=== PATIENT | male | born 1965 | race Caucasian/White ===

== ENCOUNTER 2019-10-06 12:12 | Outpatient (CLI) | payer OTHER, SELFPAY ==
--- NOTE | 2019-10-06 | XR_ITS ---
WS: [id number] CHEST 2 VIEWS HISTORY: PRODUCTIVE COUGH/WHEEZING COMPARISON: 06/30/2019 Lungs: Mild progression of interstitial infiltrates opacifications in the lower lung field, LEFT grea ter than RIGHT. Some of these opacifications were present on prior studies. Superimposed on a backgro und of emphysema. Cardiac size: Normal. Mediastinum/Aorta: Mild atherosclerosis aorta. Bones: Normal. XR/XR chest 2V* [id number] IMPRESSION: New opacifications in the lower lung olivo bilaterally. Superimposed on a back ground of emphysema. Recommend follow-up to resolution. If these opacifications do not resolve chest CT should be performed to exclude malignancy.
--- NOTE | 2019-10-19 14:30 | DCPLANNER ---
Appointment was rescheduled for Saturday, November 16, 2019 at 8:00 with Paola Nagy.
== END 2019-10-06 12:13 | disposition home or self-care (01) ==
LOC: RADOUTREAD 13:19
PROVIDERS: Family Provider Family Medicine; Visit Provider Family Medicine
DX: Z76.89 Persons encountering health services in other specified circumstances (principal)

== ENCOUNTER 2020-01-04 13:46 | Outpatient (CLI) | payer OTHER, SELFPAY ==
--- NOTE | 2020-01-04 13:54 | CT_ITS ---
WS: [id number] CT CHEST HIGH-RESOLUTION, NONCONTRAST HISTORY: BRONCHIECTASIS TECHNIQUE: High-resolution CT chest. Coronal and sagittal reformats are submitted. All CT scans at [facility] use at least one of these dose optimization techniques: automated exposure contr ol; mA and/or kV adjustment per patient size (includes targeted exams where dose is matched to clinic al indication); or iterative reconstruction. CONTRAST: None DLP: 1420.96 mGycm COMPARISON: 08/08/2017 Lungs and central airway: Extensive cylindrical and cystic dilatation of the bronchial tree involving all lobes. Most significant bronchiectasis in the upper lung olivo bilaterally. Thick wall bronchi with a few air-fluid levels. There is very mild tree-in-bud airspace disease or interstitial reticula tions in the upper lung olivo. No suspicious nodules or pneumonia. Pleura: Normal. No pleural effusion. Heart and pericardium: Normal size heart. No pericardial effusion. Mediastinum and funmi: There are numerous mediastinal and hilar lymph nodes. These lymph nodes are bet ter identified on the prior study which IV contrast was provided. Lymph nodes measure up to 10 mm in short axis diameter. Vessels: Normal size aortic and pulmonary artery. No coronary artery calcifications. Chest wall and lower neck: No soft tissue masses. Upper abdomen: Negative. Osseous structures: No destructive process. CT/CT chest con [id number] IMPRESSION: 1. Extensive, multi lobar bronchiectasis with mild progression since 2017. Bro nchiectasis more predominant in the upper lobes. Differential includes postinfe ctious etiologies such as mycobacterium, recurrent aspiration, allergic broncho pulmonary aspergillosis and immune suppressive etiologies. 2. No pneumonia. 3. Indeterminate but stable mediastinal and hilar adenopathy.
== END 2020-01-04 13:47 | disposition home or self-care (01) ==
LOC: RADWPI 13:53
PROVIDERS: Family Provider Family Medicine; PCP Family Medicine; Visit Provider Family Medicine
DX: J47.9 Bronchiectasis, uncomplicated (principal); R59.0 Localized enlarged lymph nodes
CPT/HCPCS: 71250

== ENCOUNTER 2020-01-12 11:06 | Outpatient (CLI) | payer OTHER, SELFPAY | END 2020-01-12 11:07 | disposition home or self-care (01) | LOC: LAB 11:09 | PROVIDERS: PCP Family Medicine; Visit Provider Internal Medicine Critical Care Medicine | DX: J47.9 Bronchiectasis, uncomplicated (principal) | CPT/HCPCS: 87070; 87077; 87186; 87205 ==

== ENCOUNTER 2020-01-21 11:20 | Outpatient (CLI) | payer OTHER, SELFPAY ==
--- NOTE | 2020-01-21 13:22 | PFTS_ITS ---
Date of Study:01/21/20 Date of Dictation: MECHANICS: Forced vital capacity (FVC) is normal. Forced expiratory volume in one second (FEV1) is normal. FEV1/FVC is normal. FLOW VOLUME LOOP: There is no peak expiratory flow likely secondary to effort. LUNG VOLUMES: Total lung capacity (TLC) is normal. Residual volume (RV) is normal. DIFFUSING CAPACITY FOR CARBON MONOXIDE: Normal. INTERPRETATION: The pulmonary function tests are normal. Lung volumes are normal. Gas exchange (DLCO) is normal. MTDD
== END 2020-01-21 11:21 | disposition home or self-care (01) ==
LOC: RT 11:26
PROVIDERS: PCP Family Medicine; Visit Provider Internal Medicine Critical Care Medicine
DX: J47.9 Bronchiectasis, uncomplicated (principal)
CPT/HCPCS: 94010; 94726; 94729

== ENCOUNTER 2020-02-01 15:52 | Outpatient (CLI) | payer OTHER, SELFPAY ==
[2020-02-01 16:46] LABS: Immunoglobulin IGA 342 mg/dL (70-400); Immunoglobulin IGG 1439 mg/dL (700-1600); Immunoglobulin IGM 35 mg/dL (40-230)
[2020-02-02 14:15] LABS: Cyclic Citrullinated Peptide <16 UNITS
[2020-02-02 14:41] LABS: Anti-Nuclear Antibody Screen NEGATIVE (NEGATIVE)
== END 2020-02-01 15:53 | disposition home or self-care (01) ==
LOC: LAB 15:57
PROVIDERS: PCP Family Medicine; Visit Provider Internal Medicine Critical Care Medicine
DX: J47.9 Bronchiectasis, uncomplicated (principal)
CPT/HCPCS: 82784; 86038; 86431

== ENCOUNTER → 2021-10-01 09:40 | Outpatient (BNVA) | payer OTHER, SELFPAY | PROVIDERS: PCP Family Medicine; Visit Provider Internal Medicine Critical Care Medicine | DX: Z01.812 Encounter for preprocedural laboratory examination (principal); Z20.822 Contact with and (suspected) exposure to COVID-19 | CPT/HCPCS: 87635 ==

== ENCOUNTER 2021-10-03 07:12 | Outpatient (CLI) | payer OTHER, SELFPAY ==
--- NOTE | 2021-10-03 11:23 | PFTS_ITS ---
Date of Study: 10/03/2021 Date of Dictation: 10/03/2021 MECHANICS: Prebronchodilator forced vital capacity (FVC) is normal. Prebronchodilator forced expiratory volume in one second (FEV1) is normal. FEV1/FVC is normal. There is no postbronchodilator study FLOW VOLUME LOOP: Normal. LUNG VOLUMES: Not measured DIFFUSING CAPACITY FOR CARBON MONOXIDE: Normal . INTERPRETATION: The prebronchodilator spirometry is. Gas transfer is normal. Lung volumes not measured. MTDD
--- NOTE | 2021-10-03 14:50 | PFTS_ITS ---
Date of Study:10/03/21 Date of Dictation: 10/03/2021 MECHANICS: Prebronchodilator forced vital capacity (FVC) is normal. Prebronchodilator forced expiratory volume in one second (FEV1) is normal. FEV1/FVC is normal. There is no postbronchodilator study FLOW VOLUME LOOP: Normal. LUNG VOLUMES: Not measured DIFFUSING CAPACITY FOR CARBON MONOXIDE: Normal . INTERPRETATION: The prebronchodilator spirometry is normal. Gas transfer is normal.? Lung volumes not measured. MTDD
== END 2021-10-03 07:13 | disposition home or self-care (01) ==
LOC: RT 07:22
PROVIDERS: PCP Family Medicine; Visit Provider Internal Medicine Critical Care Medicine
DX: J47.9 Bronchiectasis, uncomplicated (principal)
CPT/HCPCS: 94010; 94729

== ENCOUNTER → 2021-12-26 15:00 | Outpatient (BNVA) | payer OTHER, SELFPAY | PROVIDERS: PCP Family Medicine; Visit Provider Internal Medicine Critical Care Medicine | DX: R06.02 Shortness of breath (principal); J47.1 Bronchiectasis with (acute) exacerbation | CPT/HCPCS: 71046; 85025; 87635 ==

== ENCOUNTER 2021-12-27 07:19 | Outpatient (CLI) | payer OTHER, SELFPAY | END 2021-12-27 07:20 | disposition home or self-care (01) | LOC: LAB 07:19 | PROVIDERS: PCP Family Medicine; Visit Provider Family Medicine | DX: J47.9 Bronchiectasis, uncomplicated (principal) | CPT/HCPCS: 87070; 87205 ==

== ENCOUNTER 2022-03-29 07:27 | Outpatient (CLI) | payer OTHER, SELFPAY | END 2022-03-29 07:28 | disposition home or self-care (01) | LOC: LAB 07:28 | PROVIDERS: PCP Family Medicine; Visit Provider Internal Medicine Critical Care Medicine | DX: J47.9 Bronchiectasis, uncomplicated (principal) | CPT/HCPCS: 87070; 87205 ==

== ENCOUNTER 2022-04-11 06:52 | Outpatient (CLI) | payer OTHER, SELFPAY ==
--- NOTE | 2022-04-11 08:48 | PFTS_ITS ---
Date of Study:04/11/22 Date of Dictation: MECHANICS: Forced vital capacity (FVC) is . Forced expiratory volume in one second (FEV1) is . FEV1/FVC is . FLOW VOLUME LOOP: . LUNG VOLUMES: Total lung capacity (TLC) is . Residual volume (RV) is . DIFFUSING CAPACITY FOR CARBON MONOXIDE: . INTERPRETATION: The pulmonary function tests are . mechanics and lung volumes. Gas exchange (DLCO) is . MTDD
== END 2022-04-11 06:53 | disposition home or self-care (01) ==
PROVIDERS: PCP Family Medicine; Visit Provider Internal Medicine Critical Care Medicine
DX: J47.9 Bronchiectasis, uncomplicated (principal)
CPT/HCPCS: 94010; 94726; 94729

== ENCOUNTER → 2025-05-20 09:38 | Outpatient (BNVA) | payer OTHER, SELFPAY | PROVIDERS: PCP Family Medicine; Visit Provider Internal Medicine | DX: J84.10 Pulmonary fibrosis, unspecified (principal); J47.9 Bronchiectasis, uncomplicated; J84.9 Interstitial pulmonary disease, unspecified; J44.9 Chronic obstructive pulmonary disease, unspecified | CPT/HCPCS: 36415; 71046; 82103; 82164; 82784; 86021; 86036; 86038; 86431 ==

== ENCOUNTER 2025-05-23 07:34 | Outpatient (CLI) | payer OTHER, SELFPAY | END 2025-05-23 07:35 | disposition home or self-care (01) | PROVIDERS: PCP Family Medicine; Visit Provider Internal Medicine | DX: J47.9 Bronchiectasis, uncomplicated (principal) | CPT/HCPCS: 87070; 87205 ==

== ENCOUNTER → 2025-06-21 10:22 | Outpatient (BNVA) | payer OTHER, SELFPAY | PROVIDERS: PCP Family Medicine; Visit Provider Internal Medicine | DX: J84.10 Pulmonary fibrosis, unspecified (principal); J47.9 Bronchiectasis, uncomplicated | CPT/HCPCS: 36415; 86480 ==

== ENCOUNTER → 2025-07-26 09:16 | Outpatient (BNVA) | payer OTHER, SELFPAY | PROVIDERS: PCP Family Medicine; Visit Provider Internal Medicine | DX: J47.9 Bronchiectasis, uncomplicated (principal); J84.10 Pulmonary fibrosis, unspecified | CPT/HCPCS: 86431 ==

== ENCOUNTER 2025-08-09 08:10 | Outpatient (CLI) | payer OTHER, SELFPAY | END 2025-08-09 08:11 | disposition home or self-care (01) | LOC: RT 08:13 | PROVIDERS: PCP Family Medicine; Visit Provider Internal Medicine | DX: J44.9 Chronic obstructive pulmonary disease, unspecified (principal) | CPT/HCPCS: 94010; 94726; 94729 ==